=== PATIENT | male | born 1990 | race Two or more races ===

== ENCOUNTER 2019-07-09 08:09 | Inpatient (IN) | payer MEDICAID ==
[~2019-07-09] VITALS: Ht 175.3 cm; Wt 154.6 kg
[2019-07-09 08:27] LABS: Urine WBC None Seen /hpf (0 - 3)
[2019-07-09 08:35] LABS: Urine Bacteria NONE SEEN /hpf (None Seen); Urine Blood Negative /uL (Negative); Urine Mucus FEW (None Seen); Urine Specific Gravity 1.024 (1.001-1.035); Urine Sperm PRESENT /hpf (None Seen)
[2019-07-09 08:49] LABS: Basophils # (auto) 0 uL; Basophils % (auto) 0.2 % (0.0-2.0); Eosinophils # (auto) 0 uL; Eosinophils % (auto) 0.1 % (0.0-7.0); Hematocrit 47.6 % (41.0-53.0); Lymphocytes # (auto) 1.4 uL; Lymphocytes % (auto) 11.7 % (10.0-50.0); Mean Corpuscular Hemoglobin 28.9 pg (28.0-32.0); Mean Corpuscular Hgb Conc. 33.6 g/dL (32.0-36.0); Mean Corpuscular Volume 86.1 fL (80.0-100.0); Monocytes # (auto) 0.7 uL; Monocytes % (auto) 5.7 % (0.0-12.0); Neutrophils % (auto) 82.3 % (37.0-80.0); Nucleated Red Blood Cells % 0.1 %; Platelet Count (auto) 296 10^3/uL (140-450); Red Blood Cells 5.52 10^6/uL (4.5-5.90); Red Cell Distribution Width 13.8 % (11.8-14.3); White Blood Cell 12.1 10^3/uL (4.4-10.8)
[2019-07-09] MEDS ORDERED: SODIUM CHLORIDE 0.9% 1,000 ML IV ONE (08:58)
[2019-07-09 09:12] LABS: Alanine Aminotransferase 32 U/L (16-61); Albumin 4.1 g/dL (3.4-5.0); Anion Gap 6 (5-15); Aspartate Aminotransferase 31 U/L (15-37); BUN/Creatinine Ratio 11.3; Bilirubin, Total 0.6 mg/dL (0.2-1.0); Blood Urea Nitrogen 13 mg/dL (7-18); Calcium 9.1 mg/dL (8.5-10.1); Carbon Dioxide 29 mmol/L (21-32); Chloride 104 mmol/L (98-107); GFR African American 97 mL/min; GFR Non-African American 80 mL/min; Glucose 100 mg/dL (74-106); Sodium 139 mmol/L (136-145); Total Protein 8.4 g/dL (6.4-8.2)
[2019-07-09] MEDS ORDERED: IOHEXOL 300 MG/ML 100ML BOTTLE IJ ONE (09:13)
[2019-07-09 09:14] LABS: Alkaline Phosphatase 100 U/L (45-117)
[2019-07-09] MEDS ORDERED: ONDANSETRON HCL 4 MG/2 ML VIAL IV ONE (09:30)
[2019-07-09] MEDS ORDERED: cefTRIAXone 1GM/50ML D5W 50 ML IV ONE (11:00)
[2019-07-09] MEDS ORDERED: metroNIDAZOLE 500MG/100ML 100 ML IV ONE (11:00)
[2019-07-09 11:40] LABS: Magnesium 2.2 mg/dL (1.6-2.6)
[2019-07-09 11:47] LABS: INR 1.01 (0.9-1.15); Partial Thromboplastin Time 25.5 sec (23.64-32.05)
[2019-07-09] MEDS ORDERED: MORPHINE SULF INJ 2 MG/ML SYRINGE 1ML IV PRN ×2 (12:00)
[2019-07-09] MEDS ORDERED: NITROGLYCERIN 0.4 MG SL TAB SL PRN (12:00)
[2019-07-09] MEDS ORDERED: SOD CHL 0.9%/ KCL 20MEQ 1,000 ML IV SCH (12:00)
[2019-07-09] MEDS ORDERED: ONDANSETRON HCL 4 MG/2 ML VIAL IV PRN ×3 (12:00→15:30)
[2019-07-09] MEDS: LEVOFLOXACIN 500MG 100 ML IV SCH ×2 (12:05→13:06)
[2019-07-09] MEDS: FAMOTIDINE (10MG/ML) 2ML VL IV SCH ×2 (12:40→21:56)
[2019-07-09] MEDS ORDERED: SUCCINYLCHOLINE CHLORIDE 20 MG/ML 10ML VIAL IV ONE (13:57)
[2019-07-09] MEDS ORDERED: LIDOCAINE 1% (LOCAL ANESTH.) PF 5ml SDV ONE ×2 (13:57→14:46)
[2019-07-09] MEDS ORDERED: PROPOFOL 10 MG/ML 20 ML IV ONE (14:04)
[2019-07-09] MEDS ORDERED: ROCURONIUM 10MG/ML 10ML VIAL IV ONE (14:04)
[2019-07-09] MEDS ORDERED: MIDAZOLAM HCL 1MG/1ML-2 ML VIAL ONE (14:04)
[2019-07-09] MEDS ORDERED: METOCLOPRAMIDE HCL 5MG/ml INJ 2ml VIAL ONE (14:07)
[2019-07-09] MEDS ORDERED: fentaNYL CITRATE 100 MCG/2 ML VL ONE (14:18)
[2019-07-09] MEDS ORDERED: NALOXONE HCL 0.4 MG/ML VIAL IV PRN (14:30)
[2019-07-09] MEDS ORDERED: HYDROmorphone HCL 2 MG/ML VL IV PRN (14:30)
[2019-07-09] MEDS ORDERED: NEOSTIGMINE 1 MG/ML INJ (10mg/10ML VIAL) ONE (14:45)
[2019-07-09] MEDS ORDERED: GLYCOPYRROLATE 0.2 MG/ML 1ML VIAL ONE (14:45)
[2019-07-09] MEDS ORDERED: KETOROLAC TROMETH 30 MG/ML 1ML VIAL ONE (14:47)
[2019-07-09] MEDS ORDERED: HYDROmorphone HCL 2 MG/ML VL IV ONE (15:30)
[2019-07-09] MEDS: HYDROmorphone HCL 2 MG/ML VL IV PRN ×2 (15:39→15:49)
[2019-07-09] MEDS: D5W/SOD CHL 0.45%/KCL 20MEQ 1,000 ML IV SCH (16:47)
[2019-07-09 17:08] VITALS: BP 125/63
--- NOTE | 2019-07-09 19:00 | NUR ---
OPENING NOTE Received report from day shift RN. Patient is A&O X's 4 with no s/s of distress noted and reports no pain at this time. Educated patient on POC and to use call light when in need of assistance. Patient verbalized understanding. Patient has abdominal binder in place. 3 abdominal incisions are C/D/I/ bowel sounds are present and abdomen is soft and non distended. Patient reports mild discomfort when abdomen is palpated and when he moves. He reports no nausea. Bed is in lowest/locked position with side rails up X's 2 and call light is within reach of patient. Will continue care.
--- NOTE | 2019-07-09 20:00 | NUR ---
PATIENT AMBULATED Patient ambulated with steady gait and with standby assistance. Patient tolerating ambulation well and with no complications. Will continue care.
[2019-07-09] MEDS: metroNIDAZOLE 500MG/100ML 100 ML IV SCH (20:43)
[2019-07-09 22:25] VITALS: BP 119/66
[2019-07-10] MEDS: D5W/SOD CHL 0.45%/KCL 20MEQ 1,000 ML IV SCH ×2 (01:48→09:50)
[2019-07-10] MEDS: metroNIDAZOLE 500MG/100ML 100 ML IV SCH ×2 (04:10→11:23)
[2019-07-10 05:33] LABS: Basophils # (auto) 0 uL; Basophils % (auto) 0.3 % (0.0-2.0); Eosinophils # (auto) 0 uL; Eosinophils % (auto) 0.2 % (0.0-7.0); Hematocrit 40.3 % (41.0-53.0); Hemoglobin 13.8 g/dL (13.5-17.5); Lymphocytes # (auto) 1.6 uL; Lymphocytes % (auto) 20.5 % (10.0-50.0); Mean Corpuscular Hemoglobin 29.8 pg (28.0-32.0); Mean Corpuscular Hgb Conc. 34.4 g/dL (32.0-36.0); Mean Corpuscular Volume 86.8 fL (80.0-100.0); Monocytes # (auto) 0.6 uL; Monocytes % (auto) 7.7 % (0.0-12.0); Neutrophils # (auto) 5.5 uL; Neutrophils % (auto) 71.3 % (37.0-80.0); Nucleated Red Blood Cells % 0.1 %; Platelet Count (auto) 249 10^3/uL (140-450); Red Blood Cells 4.64 10^6/uL (4.5-5.90); Red Cell Distribution Width 13.8 % (11.8-14.3); White Blood Cell 7.7 10^3/uL (4.4-10.8)
[2019-07-10 05:40] VITALS: BP 132/70
[2019-07-10 05:59] LABS: BUN/Creatinine Ratio 6.8; Calcium 8.4 mg/dL (8.5-10.1); Potassium 4.2 mmol/L (3.5-5.1)
--- NOTE | 2019-07-10 07:20 | NUR ---
Opening Shift Note Assumed care of patient, awake and alert. Abdominal binder in place, dressing is clean, dry and intact. No S/S of distress/SOB or pain. Instructed on POC and to call for assist PRN, will continue to monitor for changes Q1hr and PRN. Bed set in lowest locked position and call light is within reach.
[2019-07-10 08:15] VITALS: BP 138/76
[2019-07-10 09:00] VITALS: BP 138/76
[2019-07-10] MEDS: LEVOFLOXACIN 500MG 100 ML IV SCH (09:42)
[2019-07-10] MEDS: FAMOTIDINE (10MG/ML) 2ML VL IV SCH (09:42)
--- NOTE | 2019-07-10 12:35 | NUR ---
MD at bedside Dr. Juan RODRIGUEZ updated pt on POC, awaiting clearance from surgeon Dr. Arevalo for discharge. Pt verbalized understanding.
[2019-07-10 13:00] VITALS: BP 125/72
--- NOTE | 2019-07-10 15:04 | NUR ---
MD at bedside Dr. Irina RODRIGUEZ cleared pt for discharge. New orders received.
--- NOTE | 2019-07-10 15:21 | NUR ---
Paul RODRIGUEZ Updated Dr. Martinez on patient clearance from surgeon, new orders from Juan received for discharge.
--- NOTE | 2019-07-10 16:30 | NUR ---
Pharmacy called New prescriptions called in, pt aware.
--- NOTE | 2019-07-10 17:40 | NUR ---
Discharge instructions given as ordered. Encourage to follow up with primary care provider as instructed. All questions and concerns addressed. Patient verbalized understanding. IV removed with catheter intact, pressure dressing applied. Patient taken to vehicle via wheelchair with all personal belongings, accompanied by staff and family member. No distress noted at time of departure.
== END 2019-07-10 17:40 | disposition home or self-care (01) | DRG 234 ==
LOC: ER 08:09 → OVERFLOW 08:10 → TELE-WESTW 16:21 → WEST WING 16:46
PROVIDERS: ADMIT Nurse Practitioner Acute Care; ATTEND Nurse Practitioner Acute Care
PROC: 0DTJ4ZZ Resection of Appendix, Percutaneous Endoscopic Approach (ICD-10-PCS; principal; 2019-07-09 14:06)
DX: K35.890 Other acute appendicitis without perforation or gangrene (principal); K21.9 Gastro-esophageal reflux disease without esophagitis; Z87.891 Personal history of nicotine dependence
CPT/HCPCS: 36415; 71046; 74177; 80048; 80053; 81001; 83690; 83735; 84484; 85025; 85610; 85730; 86850; 86900; 86901; G0378; J0330; J0696; J1885; J1956; J2250; J2405; J2704; J3490